=== PATIENT | female | born 1975 | race Two or more races ===

== ENCOUNTER 2020-09-17 08:53 | Emergency (ER) | payer BC ==
[~2020-09-17] VITALS: Ht 149.9 cm; Wt 73.0 kg
[2020-09-17] MEDS ORDERED: ONDANSETRON 2MG/ML, 2ML IVPush ONE (09:30)
[2020-09-17] MEDS ORDERED: MORPHINE SULFATE 4 MG/ML, 1ML IVPush PRN (09:30)
[2020-09-17] MEDS ORDERED: SODIUM CHLORIDE FLUSH 10ML SYR IVF ONE (09:30)
[2020-09-17 09:33] LABS: MICROSCOPIC NOT IND
--- NOTE | 2020-09-17 09:33 | NUR ---
PT IN [place] VIA [facility]. PT STATES THAT SHE WILL WAIT UNTIL US COMPLETE TO RECEIVE PAIN MEDS.
[2020-09-17 09:38] LABS: BASOPHILS % (AUTO) 1 % (0-1); EOSINOPHILS % (AUTO) 1 % (1-7); LYMPHOCYTES % (AUTO) 29 % (22-44); MEAN CORPUSCULAR HEMOGLOBIN 30.1 pg (27.0-34.8); MEAN CORPUSCULAR HGB CONC 34.5 g/dL (32.4-35.8); MEAN PLATELET VOLUME 7.2 fL (7.4-10.4); MONOCYTES % (AUTO) 4 % (2-9); NEUTROPHILS % (AUTO) 65 % (42-75); PLATELET COUNT 469 x10^3/uL (130-400); RED BLOOD COUNT 4.56 x10^6/uL (3.82-5.3); RED CELL DISTRIBUTION WIDTH 14.6 % (9.6-15.2)
[2020-09-17] MEDS ORDERED: ONDANSETRON 2MG/ML, 2ML ONE (09:47)
[2020-09-17] MEDS ORDERED: MORPHINE SULFATE 4 MG/ML, 1ML ONE (09:47)
[2020-09-17 09:53] LABS: ALANINE AMINOTRANSFERASE 33 U/L (12-78); ALBUMIN 3.4 g/dL (3.4-5.0); ANION GAP 5 mmol/L (5-15); CALCIUM 8.9 mg/dL (8.5-10.1); CHLORIDE 107 mmol/L (98-107); CREATININE 0.73 mg/dL (0.55-1.02)
[2020-09-17 09:56] LABS: ALKALINE PHOSPHATASE 87 U/L (45-117); BILIRUBIN,TOTAL 0.4 mg/dL (0.2-1.0)
[2020-09-17 10:47] VITALS: BP 148/87
== END 2020-09-17 10:49 | disposition home or self-care (01) ==
LOC: ED 10:34
DX: N83.292 Other ovarian cyst, left side (principal); Z90.710 Acquired absence of both cervix and uterus
CPT/HCPCS: 36415; 76830; 80053; 81003; 85025; 96374; 96375; 99284; J2270; J2405